=== PATIENT | male | born 1975 | race Asian ===

== ENCOUNTER 2018-07-17 01:12 | Inpatient (IN) | payer OTHER ==
[~2018-07-17] VITALS: Ht 175.3 cm; Wt 79.2 kg
[2018-07-17] MEDS ORDERED: SODIUM CHLORIDE FLUSH 10ML SYR IVF ONE (01:30)
[2018-07-17] MEDS ORDERED: ONDANSETRON ODT 4 MG PO ONE (01:30)
[2018-07-17] MEDS ORDERED: MORPHINE SULFATE 4 MG/ML, 1ML IVPush PRN ×2 (01:30→06:00)
[2018-07-17] MEDS ORDERED: SODIUM CHLORIDE 0.9% 1,000ML IVBOLUS ONE (01:30)
[2018-07-17] MEDS ORDERED: PLEASE ENTER ALLERGIES MC SCH (01:30)
[2018-07-17 01:35] LABS: BASOPHILS # (AUTO) 0.09 x10^3/uL (0-0.1); BASOPHILS % (AUTO) 1 % (0-1); EOSINOPHILS # (AUTO) 0.11 x10^3/uL (0-0.4); EOSINOPHILS % (AUTO) 1 % (1-7); LYMPHOCYTES # (AUTO) 0.46 x10^3/uL (1-3.4); LYMPHOCYTES % (AUTO) 4 % (22-44); MD NO; MEAN CORPUSCULAR HEMOGLOBIN 19.6 pg (27.5-34.5); MEAN CORPUSCULAR HGB CONC 31.4 g/dL (33.2-36.2); MEAN CORPUSCULAR VOLUME 62.4 fL (81-97); MEAN PLATELET VOLUME 8.1 fL (7.4-10.4); MONOCYTES # (AUTO) 0.37 x10^3/uL (0.2-0.8); MONOCYTES % (AUTO) 3 % (2-9); NEUTROPHILS # (AUTO) 10.59 x10^3/uL (1.8-6.8); NEUTROPHILS % (AUTO) 91 % (42-75); PLATELET COUNT 253 x10^3/uL (130-400); RED BLOOD COUNT 6.01 x10^6/uL (4.38-5.82); RED CELL DISTRIBUTION WIDTH 16.3 % (9.4-14.8)
[2018-07-17 01:45] LABS: ALANINE AMINOTRANSFERASE 27 U/L (12-78); ALBUMIN 3.9 g/dL (3.4-5.0); ANION GAP 4 mmol/L (5-15); CALCIUM 8.6 mg/dL (8.5-10.1); CHLORIDE 105 mmol/L (98-107); CREATININE 1.14 mg/dL (0.7-1.3)
[2018-07-17 01:48] LABS: ALKALINE PHOSPHATASE 74 U/L (45-117); BILIRUBIN,TOTAL 1.1 mg/dL (0.2-1.0); TOTAL PROTEIN 7.1 g/dL (6.4-8.2)
[2018-07-17] MEDS ORDERED: SODIUM CHLORIDE 0.9% 1,000 ML IV ONE (03:07)
[2018-07-17] MEDS ORDERED: PIPERACILLIN/TAZO/PMX 3.375GM 50 ML ONE (03:20)
[2018-07-17] MEDS ORDERED: HYDROmorphone 1 MG/ML, 1ML IVPush PRN (03:30)
[2018-07-17] MEDS ORDERED: ONDANSETRON 2MG/ML, 2ML IVPush PRN ×2 (03:30→05:30)
[2018-07-17] MEDS ORDERED: SODIUM CHLORIDE FLUSH 10ML SYR IVF PRN (03:30)
[2018-07-17] MEDS ORDERED: PIPERACILLIN/TAZO/PMX 3.375GM 50 ML IV ONE (03:30)
[2018-07-17] MEDS ORDERED: PROMETHAZINE 25 MG/ML, 1ML IM PRN (03:30)
[2018-07-17] MEDS ORDERED: BUPIVACAINE/PF-EPI 0.5% 1:200K ONE (04:02)
[2018-07-17] MEDS ORDERED: MIDAZOLAM 1 MG/ML, 2ML ONE (04:22)
[2018-07-17] MEDS ORDERED: FENTANYL PF 250 MCG/5ML ONE (04:22)
[2018-07-17] MEDS ORDERED: PHENYLEPHRINE 10 MG/ML ONE (04:34)
[2018-07-17] MEDS ORDERED: BUPIVACAINE/PF-EPI 0.5% 1:200K INFIL ONE (05:08)
[2018-07-17] MEDS ORDERED: CEFAZOLIN 1,000 MG ONE (05:17)
[2018-07-17] MEDS ORDERED: DEXAMETHASONE 4 MG/ML, 1ML ONE (05:17)
[2018-07-17] MEDS ORDERED: ROCURONIUM 10MG/ML,5ML ONE (05:17)
[2018-07-17] MEDS ORDERED: NEOSTIGMINE 1 MG/ML, 10ML ONE (05:17)
[2018-07-17] MEDS ORDERED: PROPOFOL 10 MG/ML, 20ML ONE (05:17)
[2018-07-17] MEDS ORDERED: GLYCOPYRROLATE 0.2MG/1ML, 5ML ONE (05:17)
[2018-07-17] MEDS ORDERED: SUCCINYLCHOLINE 20 MG/ML, 10ML ONE (05:17)
[2018-07-17] MEDS ORDERED: ONDANSETRON 2MG/ML, 2ML ONE (05:17)
[2018-07-17] MEDS ORDERED: DIPHENHYDRAMINE 25 MG CAPSULE PO PRN (05:30)
[2018-07-17] MEDS ORDERED: ACETAMINOPHEN 650 MG/20.3 ML UDC PO PRN (05:30)
[2018-07-17] MEDS ORDERED: OXYcodone 5 MG/5 ML ORAL.SOL UDC ONE (05:44)
[2018-07-17] MEDS ORDERED: ONDANSETRON ODT 8 MG PO PRN (06:00)
[2018-07-17] MEDS ORDERED: FENTANYL PF 100 MCG/2ML IV PRN (06:00)
[2018-07-17] MEDS ORDERED: MEPERIDINE/PF 25MG/0.5ML IVPush PRN (06:00)
[2018-07-17] MEDS ORDERED: ACETAMINOPHEN 325 MG TABLET PO PRN (06:00)
[2018-07-17] MEDS ORDERED: LORazepam 2 MG/ML, 1ML IVPush PRN (06:00)
[2018-07-17] MEDS ORDERED: OXYcodone 5 MG/5 ML ORAL.SOL UDC PO PRN (06:00)
[2018-07-17] MEDS ORDERED: MORPHINE SULFATE 4 MG/ML, 1ML ONE (06:00)
[2018-07-17] MEDS ORDERED: PROMETHAZINE 25 MG/ML, 1ML IV PRN (06:00)
[2018-07-17] MEDS ORDERED: ONDANSETRON 2MG/ML, 2ML IV PRN (06:00)
[2018-07-17] MEDS ORDERED: OMNIPAQUE 350 MG/ML, 100ML BOTTLE ONE (06:40)
[2018-07-17 07:01] VITALS: BP 90/58
[2018-07-17 08:47] VITALS: BP 93/54
[2018-07-17] MEDS: POTASSIUM CHLORIDE 20 MEQ in D5%-0.45% NACL 1,000 ML IV SCH ×2 (08:50→21:28)
[2018-07-17] MEDS: PIPERACILLIN/TAZO/PMX 3.375GM 50 ML IV SCH ×3 (09:43→21:04)
[2018-07-17 12:40] VITALS: BP 98/65
[2018-07-17 15:15] LABS: MICROSCOPIC NOT IND
[2018-07-17 15:19] LABS: CULTURE INDICATED? NO
[2018-07-17] MEDS: OXYcodone 5 MG/5 ML ORAL.SOL UDC PO PRN (18:41)
[2018-07-17 18:59] VITALS: BP 98/62
[2018-07-17] MEDS: KETOROLAC 30 MG/1 ML IV PRN (19:54)
[2018-07-17 23:55] VITALS: BP 99/59
[2018-07-18] MEDS: PIPERACILLIN/TAZO/PMX 3.375GM 50 ML IV SCH ×4 (03:35→21:43)
[2018-07-18] MEDS: OXYcodone 5 MG/5 ML ORAL.SOL UDC PO PRN ×5 (03:40→23:35)
[2018-07-18 03:55] VITALS: BP 109/65
[2018-07-18] MEDS: ENOXAPARIN 40 MG/0.4 ML SQ SCH (05:09)
[2018-07-18 05:49] LABS: ALBUMIN 2.7 g/dL (3.4-5.0); ANION GAP 4 mmol/L (5-15); CHLORIDE 107 mmol/L (98-107); CREATININE 1.32 mg/dL (0.7-1.3); MEAN CORPUSCULAR HEMOGLOBIN 20.4 pg (27.5-34.5); MEAN CORPUSCULAR HGB CONC 32.4 g/dL (33.2-36.2); MEAN PLATELET VOLUME 8.3 fL (7.4-10.4); PLATELET COUNT 209 x10^3/uL (130-400); RED BLOOD COUNT 4.74 x10^6/uL (4.38-5.82); RED CELL DISTRIBUTION WIDTH 16.4 % (9.4-14.8)
[2018-07-18 06:11] LABS: MD YES
[2018-07-18 06:13] LABS: ANISOCYTOSIS 1+; BAND#(MANUAL) 0.79 x10^3/uL; BANDS%(MANUAL) 6 % (0-7); EOS#(MANUAL) 0.26 x10^3/uL (0.0-0.4); EOS% (MANUAL) 2 % (1-7); LYMPH#(MANUAL) 1.98 x10^3/uL (1-3.4); LYMPHS% (MANUAL) 15 % (22-44); MONOS#(MANUAL) 0.66 x10^3/uL (0.3-2.7); MONOS% (MANUAL) 5 % (2-9); POLYCHROMASIA 1+; SEGS% (MANUAL) 72 % (42-75)
[2018-07-18 06:14] LABS: <PLATELET ESTIMATE> ADEQUATE; <PLT MORPHOLOGY> NORMAL PLT MORPH; HYPOCHROMIA 2+; MICROCYTOSIS 2+
[2018-07-18 06:37] VITALS: BP 111/69
[2018-07-18] MEDS: KETOROLAC 30 MG/1 ML IV PRN ×3 (06:49→20:10)
[2018-07-18] MEDS: POTASSIUM CHLORIDE 20 MEQ in D5%-0.45% NACL 1,000 ML IV SCH ×2 (10:56→23:32)
[2018-07-18 12:48] VITALS: BP 121/76
[2018-07-18 13:29] LABS: CLOSTRIDIUM DIFFICILE ANTIGEN NEGATIVE; CLOSTRIDIUM DIFFICILE TOXIN NEGATIVE (Negative)
[2018-07-18 19:13] VITALS: BP 115/72
[2018-07-18 23:43] VITALS: BP 122/77
[2018-07-19] MEDS: PIPERACILLIN/TAZO/PMX 3.375GM 50 ML IV SCH ×4 (04:00→22:16)
[2018-07-19 04:29] VITALS: BP 138/85
[2018-07-19] MEDS: ENOXAPARIN 40 MG/0.4 ML SQ SCH (05:19)
[2018-07-19] MEDS: OXYcodone 5 MG/5 ML ORAL.SOL UDC PO PRN ×3 (05:19→22:16)
[2018-07-19 05:37] LABS: BASOPHILS % (AUTO) 0 % (0-1); EOSINOPHILS # (AUTO) 0.16 x10^3/uL (0-0.4); EOSINOPHILS % (AUTO) 2 % (1-7); LYMPHOCYTES # (AUTO) 0.93 x10^3/uL (1-3.4); LYMPHOCYTES % (AUTO) 8 % (22-44); MD NO; MEAN CORPUSCULAR HEMOGLOBIN 19.3 pg (27.5-34.5); MEAN CORPUSCULAR HGB CONC 30.9 g/dL (33.2-36.2); MEAN CORPUSCULAR VOLUME 62.6 fL (81-97); MEAN PLATELET VOLUME 8.3 fL (7.4-10.4); MONOCYTES # (AUTO) 0.91 x10^3/uL (0.2-0.8); MONOCYTES % (AUTO) 8 % (2-9); NEUTROPHILS # (AUTO) 8.95 x10^3/uL (1.8-6.8); NEUTROPHILS % (AUTO) 82 % (42-75); PLATELET COUNT 208 x10^3/uL (130-400); RED CELL DISTRIBUTION WIDTH 16.2 % (9.4-14.8)
[2018-07-19 05:50] LABS: CHLORIDE 105 mmol/L (98-107)
[2018-07-19 05:54] LABS: ANION GAP 6 mmol/L (5-15); CALCIUM 7.8 mg/dL (8.5-10.1); CREATININE 1.13 mg/dL (0.7-1.3)
[2018-07-19 06:30] VITALS: BP 128/75
[2018-07-19] MEDS: KETOROLAC 30 MG/1 ML IV PRN ×2 (11:42→21:00)
[2018-07-19 13:30] VITALS: BP 115/71
[2018-07-19 18:59] VITALS: BP 121/75
[2018-07-20 02:03] VITALS: BP 130/76
[2018-07-20] MEDS: PIPERACILLIN/TAZO/PMX 3.375GM 50 ML IV SCH ×4 (03:57→22:19)
[2018-07-20] MEDS: ENOXAPARIN 40 MG/0.4 ML SQ SCH (05:47)
[2018-07-20 06:03] LABS: ANION GAP 5 mmol/L (5-15); CALCIUM 7.9 mg/dL (8.5-10.1); CHLORIDE 108 mmol/L (98-107); CREATININE 1.13 mg/dL (0.7-1.3)
[2018-07-20 06:08] LABS: MEAN CORPUSCULAR HEMOGLOBIN 19.9 pg (27.5-34.5); MEAN CORPUSCULAR HGB CONC 31.4 g/dL (33.2-36.2); MEAN CORPUSCULAR VOLUME 63.3 fL (81-97); MEAN PLATELET VOLUME 8.2 fL (7.4-10.4); PLATELET COUNT 249 x10^3/uL (130-400); RED BLOOD COUNT 4.63 x10^6/uL (4.38-5.82); RED CELL DISTRIBUTION WIDTH 16.9 % (9.4-14.8)
[2018-07-20 06:35] LABS: MD YES
[2018-07-20 06:37] LABS: BAND#(MANUAL) 0.38 x10^3/uL; BANDS%(MANUAL) 4 % (0-7); EOS#(MANUAL) 0.28 x10^3/uL (0.0-0.4); EOS% (MANUAL) 3 % (1-7); LYMPH#(MANUAL) 0.85 x10^3/uL (1-3.4); LYMPHS% (MANUAL) 9 % (22-44); MONOS#(MANUAL) 0.47 x10^3/uL (0.3-2.7); MONOS% (MANUAL) 5 % (2-9); SEG#(MANUAL) 7.43 x10^3/uL (1.8-6.8); SEGS% (MANUAL) 79 % (42-75)
[2018-07-20 06:39] LABS: ANISOCYTOSIS 1+; MICROCYTOSIS 1+
[2018-07-20 06:40] LABS: <PLATELET ESTIMATE> ADEQUATE; <PLT MORPHOLOGY> NORMAL PLT MORPH; HYPOCHROMIA 1+; OVALOCYTES 1+; POLYCHROMASIA 1+
[2018-07-20 07:42] VITALS: BP 133/79
[2018-07-20] MEDS: KETOROLAC 30 MG/1 ML IV PRN ×3 (08:06→22:19)
[2018-07-20] MEDS: OXYcodone 5 MG/5 ML ORAL.SOL UDC PO PRN ×3 (17:10→22:29)
[2018-07-20 20:12] VITALS: BP 141/86
[2018-07-21 03:54] VITALS: BP 136/81
[2018-07-21 04:20] VITALS: BP 136/81
[2018-07-21] MEDS: KETOROLAC 30 MG/1 ML IV PRN ×2 (05:11→15:08)
[2018-07-21] MEDS: OXYcodone 5 MG/5 ML ORAL.SOL UDC PO PRN ×3 (05:12→18:08)
[2018-07-21] MEDS: PIPERACILLIN/TAZO/PMX 3.375GM 50 ML IV SCH ×3 (05:12→16:14)
[2018-07-21] MEDS: ENOXAPARIN 40 MG/0.4 ML SQ SCH (05:12)
[2018-07-21 05:28] LABS: MEAN CORPUSCULAR HEMOGLOBIN 19.9 pg (27.5-34.5); MEAN CORPUSCULAR HGB CONC 32.4 g/dL (33.2-36.2); MEAN CORPUSCULAR VOLUME 61.5 fL (81-97); MEAN PLATELET VOLUME 7.7 fL (7.4-10.4); PLATELET COUNT 304 x10^3/uL (130-400); RED BLOOD COUNT 4.63 x10^6/uL (4.38-5.82); RED CELL DISTRIBUTION WIDTH 16.6 % (9.4-14.8)
[2018-07-21 05:33] LABS: ANION GAP 7 mmol/L (5-15); CALCIUM 8.4 mg/dL (8.5-10.1); CHLORIDE 108 mmol/L (98-107); CREATININE 0.94 mg/dL (0.7-1.3)
[2018-07-21 05:51] LABS: MD YES
[2018-07-21 06:14] LABS: ANISOCYTOSIS 1+; EOS#(MANUAL) 0.14 x10^3/uL (0.0-0.4); EOS% (MANUAL) 2 % (1-7); HYPOCHROMIA 1+; LYMPH#(MANUAL) 2.41 x10^3/uL (1-3.4); LYMPHS% (MANUAL) 34 % (22-44); MICROCYTOSIS 1+; MONOS#(MANUAL) 0.43 x10^3/uL (0.3-2.7); MONOS% (MANUAL) 6 % (2-9); SEG#(MANUAL) 4.12 x10^3/uL (1.8-6.8); SEGS% (MANUAL) 58 % (42-75)
[2018-07-21 06:15] LABS: <PLATELET ESTIMATE> ADEQUATE; <PLT MORPHOLOGY> NORMAL PLT MORPH; OVALOCYTES 1+; POLYCHROMASIA 1+
[2018-07-21 08:00] VITALS: BP 122/73
[2018-07-21 14:00] VITALS: BP 133/82
[2018-07-21] MEDS ORDERED: OXYC5TAB2 PO (15:48)
[2018-07-21] MEDS ORDERED: AMOX1TAB64 PO (15:49)
[2018-07-21] MEDS ORDERED: DIPH25CA61 PO (16:03)
[2018-07-21] MEDS ORDERED: ACET650S12 PR (16:04)
== END 2018-07-21 18:19 | disposition home or self-care (01) | DRG 340 ==
LOC: ED 03:40 → 4NOR 03:41
PROVIDERS: ADMIT Surgery; ATTEND Surgery
PROC: 0DTJ4ZZ Resection of Appendix, Percutaneous Endoscopic Approach (ICD-10-PCS; principal; 2018-07-17 03:45)
DX: K35.2 Acute appendicitis with generalized peritonitis (principal); K38.1 Appendicular concretions; F12.90 Cannabis use, unspecified, uncomplicated; D72.825 Bandemia; D72.829 Elevated white blood cell count, unspecified; F17.200 Nicotine dependence, unspecified, uncomplicated
CPT/HCPCS: 36415; 99285; J3490; 74177; 80048; 80053; 81003; 82040; 83690; 85025; 87324; 88304; 96361; 96374; G0378; J0690; J1100; J1650; J1885; J2250; J2405; J2543; J2704; J2710; J3010; J3480; Q9967; J0330; J2370; J7030